=== PATIENT | female | born 1980 | race Caucasian/White ===

== ENCOUNTER 2017-11-06 19:25 | Outpatient (CLI) | payer OTHER ==
[2017-11-06 20:43] VITALS: BP 125/61
== END 2017-11-06 22:22 | disposition home or self-care (01) ==
LOC: TRG 19:25
PROVIDERS: ATTEND Obstetrics & Gynecology
DX: O36.8131 Decreased fetal movements, third trimester, fetus 1 (principal); Z3A.35 35 weeks gestation of pregnancy
CPT/HCPCS: 59025; 82962

== ENCOUNTER 2017-11-19 14:51 | Observation (INO) | payer OTHER ==
[2017-11-19] MEDS ORDERED: LACTATED RINGERS 500 ML IV ONE (16:19)
[2017-11-19 16:21] LABS: Amorphous Crystals,Urine Few; Bilirubin,Urine NEG (Negative); Blood,Urine NEG (Negative); Mucus,Urine 1+ /HPF; Urobilinogen,Urine < 2.0 mg/dL (<2.0)
[2017-11-19 16:22] LABS: Color,Urine Yellow (Yellow)
[2017-11-19 17:43] LABS: Hematocrit 38.5 % (30.3-42.9); Hemoglobin 12.7 gm/dl (10.1-14.3); Mean Corpuscular HGB Conc 33 % (30-34); Mean Corpuscular Hemoglobin 27 pg (28-32); Mean Corpuscular Volume 82 fl (79-97); Platelet Count 185 K/mm3 (140-440); Red Blood Count 4.68 M/mm3 (3.65-5.03); Red Cell Distribution Width 16.4 % (13.2-15.2)
[2017-11-19 18:02] LABS: Alanine Aminotransferase 14 units/L (7-56); Uric Acid 6.5 mg/dL (3.5-7.6)
[2017-11-19] MEDS ORDERED: NORMODYNE PO ONE (22:29)
--- NOTE | 2017-11-20 00:17 | Ultrasound Report ---
FINAL REPORT EXAM: US OB BPP WO NON-STRESS HISTORY: Non Reassurring Heart Rate Tracing TECHNIQUE: A limited obstetric sonogram was obtained for evaluation of the patient's biophysical profile. FINDINGS: For breathing movements, a score of 2 out of 2 was obtained. For movements, a score of 2 out of 2 was obtained. For posture in tone, a score of 2 out of 2 was obtained. For qualitative amniotic fluid volume, a score of 2 out of 2 was obtained. The total biophysical profile score is 8 out of 8. The heart rate is 133 BPM. IMPRESSION: Biophysical profile score of 8 out of 8. The heart rate is 133 BPM.
--- NOTE | 2017-11-20 00:19 | Ultrasound Report ---
FINAL REPORT EXAM: US OB FOLLOW UP HISTORY: Non Reassuring Heart Rate Tracing TECHNIQUE: Routine transabdominal imaging was obtained of the pelvis. FINDINGS: There is a single viable intrauterine in breech presentation with an estimated sonographic age of 36 weeks 2 days based on sonographic criteria. The heart rate is 133 BPM. The CHAYO is 14.8 cm which is normal. The estimated weight is 2856 grams. A complete survey of organs was not obtained. The measured indices are all within normal range. The biophysical profile score is 8 out of 8. IMPRESSION: Intrauterine breech , 36 weeks 2 days as described. The heart rate is 133 BPM.
[2017-11-20] MEDS ORDERED: APRESOLINE IV PRN (01:35)
[2017-11-20 06:51] LABS: Hematocrit 36.6 % (30.3-42.9); Hemoglobin 12.1 gm/dl (10.1-14.3); Mean Corpuscular HGB Conc 33 % (30-34); Mean Corpuscular Hemoglobin 27 pg (28-32); Mean Corpuscular Volume 82 fl (79-97); Platelet Count 177 K/mm3 (140-440); Red Blood Count 4.46 M/mm3 (3.65-5.03); Red Cell Distribution Width 16.3 % (13.2-15.2)
[2017-11-20 07:15] LABS: Alanine Aminotransferase 15 units/L (7-56)
[2017-11-20 08:36] LABS: Uric Acid 6.8 mg/dL (3.5-7.6)
[2017-11-20] MEDS ORDERED: COLACE PO PRN (10:30)
[2017-11-20] MEDS ORDERED: PRENATAL VITAMIN PO SCH (10:30)
[2017-11-20] MEDS ORDERED: NORMODYNE PO SCH (10:30)
[2017-11-20] MEDS ORDERED: TYLENOL PO PRN (10:30)
[2017-11-20 12:47] VITALS: BP 137/80
--- NOTE | 2017-11-20 14:18 | History and Physical Report ---
History of Present Illness Date of examination: 11/20/17 Date of admission: 11/20/17 00:41 Chief complaint: SIUP at 37 weeks with elevated BP. History of present illness: Patient is a 37 year old , LMP 02/25/17, EDC 12/11/17 who is at 37 weeks gestation who was sent from [facility] for BP monitoring last night. She has a history of chronic HTN, gestational diabetes, hypothyroidism, + Down's syndrome screening. Patient is irish-speaking and is not able to give a clear history. Her PN records were not available until this AM. No reports from an MFM specialist were found, but patient stated that she has seen an MFM about the +Down's test and no further testing was done. She is not on any anti- HTN or thyroid meds. In early october, TSH was 7.07, no free T4 was done. She is taking glyburide 2.5 mg in AM and 5 mg at night. In triage last night, her BP was in the 140-150's/70-80's. She denied any headache, visual disturbances or RUQ pain. tracing was CAT 1, BPP was 8/8, CHAYO 14.8, breech presentation. She was kept for observation and BP monitoring. Toxemia labs were normal last night. Repeat were also normal this AM. This AM, she denies any complaint. tracing is reassuring. FS log reviewed. Fasting glucose 88-110. 2-hr PP: 100-130. Past History Past Medical History: hypertension, diabetes, thyroid disease, other (UTI,) Past Surgical History: other (exploratory laparotomy with bowel resection 3 weeks after vaginal delivery. Baby was also killed at 21 days old.) Family/Genetic History: none Social history: no significant social history - Obstetrical History Expected Date of Delivery: 12/11/17 Actual Gestation: 37 Week(s) 0 Day(s) : 3 Para: 2 Number of Living Children: 1 #1 Infant Gender: Male year: 1,999 Birthweight: 3.317 kg Method of Delivery: Vaginal Gestational age at delivery: 40 Complications: none, other (The baby was killed by intruder at age 21 days old.) #2 Infant Gender: Female year: 2,011 Birthweight: 3.175 kg Method of Delivery: Vaginal Gestational age at delivery: 40 Complications: none Medications and Allergies Allergies Allergy/AdvReac Type Severity Reaction Status Date / Time No Known Allergies Allergy Verified 11/19/17 15:18 Home Medications Medication Instructions Recorded Confirmed Last Taken Type glyBURIDE [Glyburide] 2 tab PO QHS 11/20/17 11/20/17 11/18/17 History glyBURIDE [Glyburide] 2.5 mg PO QAM 11/20/17 11/20/17 11/19/17 History Active Meds: Active Medications Acetaminophen (Tylenol) 650 mg PO Q4H PRN PRN Reason: Pain MILD(1-3)/Fever >100.5/TERRAZAS Docusate Sodium (Colace) 100 mg PO Q12H PRN PRN Reason: Constipation Hydralazine HCl (Apresoline) 5 mg IV Q30MIN PRN PRN Reason: Hypertension Labetalol HCl (Normodyne) 200 mg PO BID [facility] Last Admin: 11/20/17 10:53 Dose: 200 mg Multivitamins/Iron/Calcium ( Vitamin) 1 each PO QDAY [facility] Last Admin: 11/20/17 10:54 Dose: 1 each - Vital Signs Vital signs: Vital Signs Pulse Pulse Ox 80 97 11/19/17 15:40 11/19/17 15:40 Temp Pulse Resp BP Pulse Ox 97.4 F L 64 16 137/80 98 11/20/17 07:15 11/20/17 12:46 11/20/17 07:15 11/20/17 12:46 11/20/17 07:15 - Physical Exam Cardiovascular: Normal S1, Normal S2 Lungs: Positive: Clear to auscultation Vulva: both: normal Deep Tendon Reflex Grade: Normal +2 - Obstetrical FHR: category 1 Uterine Contraction Monitor Mode: External Uterine Contraction Pattern: Absent Results Result Diagrams: 11/20/17 06:21 11/20/17 06:21 Abnormal lab results 11/19/17 11/19/17 11/19/17 Range/Units 15:21 17:25 17:25 MCH 27 L (28-32) pg RDW 16.4 H (13.2-15.2) % Creatinine 0.6 L (0.7-1.2) mg/dL Lactate Dehydrogenase 254 H (91-180) units/L Urine WBC (Auto) (0.0-6.0) /HPF Ur Total Protein 24 Hr 513.00 H (2-200) Urine Total Protein 57 H (5-11.8) mg/dL 11/19/17 11/20/17 11/20/17 Range/Units Unknown 06:21 06:21 MCH 27 L (28-32) pg RDW 16.3 H (13.2-15.2) % Creatinine 0.6 L (0.7-1.2) mg/dL Lactate Dehydrogenase 267 H (91-180) units/L Urine WBC (Auto) 12.0 H (0.0-6.0) /HPF Ur Total Protein 24 Hr (2-200) Urine Total Protein (5-11.8) mg/dL All other labs normal. Assessment and Plan - Patient Problems (1) 37 weeks gestation of Current Visit: Yes Status: Acute (2) Chronic hypertension affecting Current Visit: Yes Status: Acute Plan to address problem: BP is stable. Pt is asymptomatic. Toxemia labs were normal twice. Labetolol Rx 200 mg BID was given. Pt will be discharged home today. She was told to f/u with [facility] in 5 days. Toxemia precautions were given. (3) Gestational diabetes Current Visit: Yes Status: Acute Plan to address problem: Patient is on glyburide. Will continue glucose monitoring fasting and 2-hr PP. Pt was told that she needs to come to [facility] next week and continue care there until delivery. (4) Hypothyroidism affecting Current Visit: Yes Status: Acute Plan to address problem: Patient is not on any meds. Her last TSH was 7.07. Repeat TSH and free T4 today. (5) Abnormal screening blood test for Down syndrome in first trimester Current Visit: Yes Status: Acute Plan to address problem: Patient said that she saw [facility] but no further genetics testing was done. (6) Advanced maternal age (AMA) in Current Visit: Yes Status: Acute (7) Positive GBS test Current Visit: Yes Status: Acute (8) Breech presentation Current Visit: Yes Status: Acute Plan to address problem: Patient was told that the baby may turn. If not, she will need a c/section.
== END 2017-11-20 18:20 | disposition home or self-care (01) ==
LOC: TRG 14:51 → LD 11-20 00:41
PROVIDERS: ADMIT Obstetrics & Gynecology; ATTEND Obstetrics & Gynecology
DX: O10.013 Pre-existing essential hypertension complicating pregnancy, third trimester (principal); O24.415 Gestational diabetes mellitus in pregnancy, controlled by oral hypoglycemic drugs; O99.283 Endocrine, nutritional and metabolic diseases complicating pregnancy, third trimester; E03.9 Hypothyroidism, unspecified; O09.523 Supervision of elderly multigravida, third trimester; O32.1XX0 Maternal care for breech presentation, not applicable or unspecified; O99.820 Streptococcus B carrier state complicating pregnancy; O28.5 Abnormal chromosomal and genetic finding on antenatal screening of mother; Z3A.37 37 weeks gestation of pregnancy
CPT/HCPCS: 36415; 76816; 76819; 81001; 82565; 82962; 83615; 84156; 84439; 84443; 84450; 84460; 84550; 85027; G0378